=== PATIENT | female | born 1965 | race Caucasian/White ===

== ENCOUNTER → 2016-08-27 | Outpatient (CLI) | payer BC ==
[~2016-08-27] MED LIST: NO HOME MEDICATIONS; PREDNISONE20 MG PO; XANAX .25M0.25 MG/TA PO
== END ==
LOC: MC.RAD 11:02
DX: Z12.31 Encounter for screening mammogram for malignant neoplasm of breast (principal)

== ENCOUNTER → 2017-10-11 | Outpatient (CLI) | payer BC | LOC: MC.RAD 12:58 | DX: Z12.31 Encounter for screening mammogram for malignant neoplasm of breast (principal) ==

== ENCOUNTER → 2018-10-25 | Outpatient (CLI) | payer BC | LOC: MC.RAD 15:53 | DX: Z12.31 Encounter for screening mammogram for malignant neoplasm of breast (principal) ==

== ENCOUNTER → 2019-10-20 | Outpatient (CLI) | payer BC | LOC: ZCOL.LAB 17:48 | DX: Z20.828 Contact with and (suspected) exposure to other viral communicable diseases (principal) ==

== ENCOUNTER → 2019-11-08 | Outpatient (CLI) | payer BC | LOC: MC.RAD 14:36 | DX: Z12.31 Encounter for screening mammogram for malignant neoplasm of breast (principal) ==

== ENCOUNTER → 2020-11-13 | Outpatient (CLI) | payer BC | LOC: MC.RAD 12:58 | DX: Z12.31 Encounter for screening mammogram for malignant neoplasm of breast (principal) ==

== ENCOUNTER → 2021-12-08 | Outpatient (CLI) | payer BC | LOC: MC.RAD 11-17 14:00 | DX: Z12.31 Encounter for screening mammogram for malignant neoplasm of breast (principal) ==